=== PATIENT | male | born 1990 | race Caucasian/White ===

== ENCOUNTER 2019-11-22 18:56 | Emergency (ER) | payer SELFPAY ==
[~2019-11-22] VITALS: Ht 165.1 cm; Wt 45.5 kg
[2019-11-22] MEDS ORDERED: ONDANSETRON ODT 4 MG TAB.RAPDIS. PO ONE (19:30)
[2019-11-22] MEDS ORDERED: DIPH,PERTUSS(ACELL),TET VAC/PF 0.5 ML SYRINGE. VAX IM ONE (19:45)
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
[2019-11-22 22:18] VITALS: BP 115/68
== END 2019-11-22 22:19 | disposition short-term general hospital (02) ==
LOC: ER 18:56
DX: S02.32XA Fracture of orbital floor, left side, initial encounter for closed fracture (principal); S02.401A Maxillary fracture, unspecified side, initial encounter for closed fracture; R04.0 Epistaxis; Z90.5 Acquired absence of kidney; Y04.0XXA Assault by unarmed brawl or fight, initial encounter; Y93.89 Activity, other specified; Y92.89 Other specified places as the place of occurrence of the external cause; Y99.8 Other external cause status
CPT/HCPCS: 70450; 70486; 90471; 90715; 99285-25